=== PATIENT | female | born 1990 | race American Indian/Alaskan Native ===

== ENCOUNTER 2021-11-20 12:55 | Emergency (ER) | payer SELFPAY ==
[2021-11-20 14:26] LABS: Basophils % (Auto) 0.2 % (0.0-1.8); Eosinophils % (Auto) 0.5 % (0.0-4.3); Hematocrit 37.3 % (30.3-42.9); Hemoglobin 12.5 gm/dl (10.1-14.3); Lymphocytes # (Auto) 1.4 K/mm3 (1.2-5.4); Lymphocytes % (Auto) 32.2 % (13.4-35.0); Mean Corpuscular HGB Conc 34 % (30-34); Mean Corpuscular Volume 74 fl (79-97); Monocytes # (Auto) 0.4 K/mm3 (0.0-0.8); Monocytes % (Auto) 9.7 % (0.0-7.3); Platelet Count 188 K/mm3 (140-440); Red Blood Count 5.04 M/mm3 (3.65-5.03); Red Cell Distribution Width 15.9 % (13.2-15.2)
[2021-11-20 14:48] LABS: Alanine Aminotransferase 15 units/L (7-56); Albumin 4.3 g/dL (3.9-5); Blood Urea Nitrogen 7 mg/dL (7-17); Calcium 8.9 mg/dL (8.4-10.2); Hemolysis Index 4
[2021-11-20 14:55] LABS: BUN/Creatinine Ratio 12
[2021-11-20 15:56] LABS: Mucus,Urine FEW /HPF
[2021-11-20 15:58] LABS: Color,Urine Yellow (Yellow)
[2021-11-20 16:01] LABS: HCG Qualitative,Urine Negative (Negative)
[2021-11-20] MEDS ORDERED: methylPREDNISolone Sod Succinate 125 MG/2 ML INJ IM ONE (16:38)
[2021-11-20] MEDS ORDERED: ACETAMINOPHEN 500 MG TAB PO ONE (16:39)
--- NOTE | 2021-11-20 16:41 | Emergency Department Report ---
ED General Adult HPI - General Chief complaint: Abdominal Pain Stated complaint: LUPUS FLARE UP Time Seen by Provider: 11/20/21 16:37 Source: patient Mode of arrival: Ambulatory Limitations: No Limitations - History of Present Illness Initial comments: 31 yo come to ER with lupus flare. General soreness. Here usual. home Rx placquenil metop fe mvi no cp no sob -: Sudden, hour(s) Consistency: constant Improves with: none Worsens with: none Associated Symptoms: denies other symptoms Treatments Prior to Arrival: none - Related Data Previous Rx's Medication Instructions Recorded Last Taken Type Oseltamivir [Tamiflu] 75 mg PO BID #10 cap 04/13/15 Unknown Rx Amoxicillin [Trimox CAP] 500 mg PO Q8H #30 capsule 06/15/15 Unknown Rx Fluticasone [Flonase] 2 spray NS QDAY #1 bottle 06/15/15 Unknown Rx Loratadine (Nf) [Claritin] 10 mg PO DAILY #30 tablet 06/15/15 Unknown Rx Promethazine /Codeine 5 ml PO Q6H PRN #150 ml 06/15/15 Unknown Rx [Phenergan/Codeine 6.25-10 mg/5 ml] Sennosides/Docusate Sodium [Senna 1 each PO TID #30 tablet 12/11/15 Unknown Rx Laxative Tablet] Albuterol Mdi (or & Nicu Only) 2 puff IH QID PRN #1 inhalation 12/31/15 Unknown Rx [Proair] Azithromycin [Zithromax Z-FAVIOLA] 250 mg PO DAILY #6 tab 12/31/15 Unknown Rx Ibuprofen [Motrin 600 MG tab] 600 mg PO Q8H PRN #15 tablet 12/31/15 Unknown Rx Prednisone [predniSONE 10 mg 10 mg PO .TAPER #1 tab.ds.pk 12/31/15 Unknown Rx (6-Day Pack, 21 Tabs)] Acetaminophen [Tylenol Arthritis] 650 mg PO Q6HR PRN #30 tablet.er 01/08/17 Unknown Rx Ibuprofen [Motrin] 600 mg PO Q8H PRN #30 tablet 01/08/17 Unknown Rx Ondansetron [Zofran Odt] 4 mg PO Q8HR PRN #20 tab.rapdis 01/08/17 Unknown Rx Acetaminophen [Acetaminophen 8 650 mg PO Q8H PRN #25 tablet.er 11/20/21 Unknown Rx Hour] methylPREDNISolone [Medrol 4MG 4 mg PO FS #1 tab.ds.pk 11/20/21 Unknown Rx DOSEPAK (21 tabs)] Allergies Allergy/AdvReac Type Severity Reaction Status Date / Time apple Allergy Itching Verified 01/08/17 09:29 ED Review of Systems ROS: Stated complaint: LUPUS FLARE UP Other details as noted in HPI Comment: All other systems reviewed and negative ED Past Medical Hx - Past Medical History Previous Medical History?: Yes Hx Hypertension: Yes Hx Asthma: Yes Additional medical history: constipation, bronchitis, rheumatoid arthritis,lupus - Surgical History Past Surgical History?: Yes Additional Surgical History: lumpectomy - Family History Family history: no significant - Social History Smoking Status: Never Smoker Substance Use Type: None - Medications Home Medications: Home Medications Medication Instructions Recorded Confirmed Last Taken Type Oseltamivir [Tamiflu] 75 mg PO BID #10 cap 04/13/15 Unknown Rx Amoxicillin [Trimox CAP] 500 mg PO Q8H #30 capsule 06/15/15 Unknown Rx Fluticasone [Flonase] 2 spray NS QDAY #1 bottle 06/15/15 Unknown Rx Loratadine (Nf) [Claritin] 10 mg PO DAILY #30 tablet 06/15/15 Unknown Rx Promethazine /Codeine 5 ml PO Q6H PRN #150 ml 06/15/15 Unknown Rx [Phenergan/Codeine 6.25-10 mg/5 ml] Sennosides/Docusate Sodium [Senna 1 each PO TID #30 tablet 12/11/15 Unknown Rx Laxative Tablet] Albuterol Mdi (or & Nicu Only) 2 puff IH QID PRN #1 inhalation 12/31/15 Unknown Rx [Proair] Azithromycin [Zithromax Z-FAVIOLA] 250 mg PO DAILY #6 tab 12/31/15 Unknown Rx Ibuprofen [Motrin 600 MG tab] 600 mg PO Q8H PRN #15 tablet 12/31/15 Unknown Rx Prednisone [predniSONE 10 mg 10 mg PO .TAPER #1 tab.ds.pk 12/31/15 Unknown Rx (6-Day Pack, 21 Tabs)] Acetaminophen [Tylenol Arthritis] 650 mg PO Q6HR PRN #30 tablet.er 01/08/17 Unknown Rx Ibuprofen [Motrin] 600 mg PO Q8H PRN #30 tablet 01/08/17 Unknown Rx Ondansetron [Zofran Odt] 4 mg PO Q8HR PRN #20 tab.rapdis 01/08/17 Unknown Rx Acetaminophen [Acetaminophen 8 650 mg PO Q8H PRN #25 tablet.er 11/20/21 Unknown Rx Hour] methylPREDNISolone [Medrol 4MG 4 mg PO FS #1 tab.ds.pk 11/20/21 Unknown Rx DOSEPAK (21 tabs)] ED Physical Exam - General Limitations: No Limitations General appearance: alert, in no apparent distress - Head Head exam: Present: atraumatic, normocephalic - Eye Eye exam: Present: normal appearance - ENT ENT exam: Present: mucous membranes moist - Neck Neck exam: Present: normal inspection - Respiratory Respiratory exam: Present: normal lung sounds bilaterally. Absent: respiratory distress - Cardiovascular Cardiovascular Exam: Present: regular rate, normal rhythm. Absent: systolic murmur, diastolic murmur, rubs, gallop - GI/Abdominal GI/Abdominal exam: Present: soft, normal bowel sounds - Extremities Exam Extremities exam: Present: normal inspection - Back Exam Back exam: Present: normal inspection - Neurological Exam Neurological exam: Present: alert, oriented X3 - Psychiatric Psychiatric exam: Present: normal affect, normal mood - Skin Skin exam: Present: warm, dry, intact, normal color. Absent: rash ED Course Vital Signs 11/20/21 13:23 Temperature 98.4 F Pulse Rate 80 Respiratory 18 Rate Blood Pressure 146/107 [Left] O2 Sat by Pulse 99 Oximetry ED Medical Decision Making - Lab Data Result diagrams: 11/20/21 13:32 11/20/21 13:32 - Medical Decision Making Labs 11/20/21 11/20/21 11/20/21 13:32 13:32 15:35 WBC 4.4 L RBC 5.04 H Hgb 12.5 Hct 37.3 MCV 74 L MCH 25 L MCHC 34 RDW 15.9 H Plt Count 188 Lymph % (Auto) 32.2 [place] % (Auto) 9.7 H Eos % (Auto) 0.5 Baso % (Auto) 0.2 Lymph # (Auto) 1.4 [place] # (Auto) 0.4 Eos # (Auto) 0.0 Baso # (Auto) 0.0 Seg Neutrophils % 57.4 Seg Neutrophils # 2.5 Sodium 137 Potassium 4.0 Chloride 103.8 Carbon Dioxide 25 Anion Gap 12 BUN 7 Creatinine 0.6 Estimated GFR > 60 BUN/Creatinine Ratio 12 Glucose 86 Calcium 8.9 Total Bilirubin 0.40 AST 21 ALT 15 Alkaline Phosphatase 85 Total Protein 8.0 Albumin 4.3 Albumin/Globulin Ratio 1.2 Urine Color Yellow Urine Turbidity Slightly cloudy Specific [place] (Man) 1.010 Ur Protein (Man) 1+ Ur Ketones (Man) Negative Ur Nitrite (Man) Negative Urine Bilirubin (Man) Negative Urine Ictotest Not Reportable Leukocyte Esterase (Man) Negative Urine WBC (Auto) 1.0 Urine RBC (Auto) 2.0 U Epithel Cells (Auto) 15.0 H Urine RBC (Manual) Negative Urine Mucus Few Urine HCG, Qual Negative Vital Signs 11/20/21 13:23 Temperature 98.4 F Pulse Rate 80 Respiratory 18 Rate Blood Pressure 146/107 [Left] O2 Sat by Pulse 99 Oximetry im methylpred in ER vss abc intact hx htn on metop reports taking it no cp no sob ambulatory taking p nad on exam dc home with dc plan of care including diet, meds, activity and follow up - Differential Diagnosis sle Critical care attestation.: If time is entered above; I have spent that time in minutes in the direct care of this critically ill patient, excluding procedure time. ED Disposition Clinical Impression: Lupus, Hx of secondary hypertension Disposition: 01 HOME / SELF CARE / HOMELESS Is pt being admited?: No Does the pt Need Aspirin: No Condition: Stable Instructions: Abdominal Pain (ED) Additional Instructions: med as ordered today follow up with your primary MD [place] referral for local pcp below continue home meds Prescriptions: Acetaminophen [Acetaminophen 8 Hour] 650 mg PO Q8H PRN #25 tablet.er PRN Reason: Pain , Severe (7-10) methylPREDNISolone [Medrol 4MG DOSEPAK (21 tabs)] 4 mg PO FS #1 tab.ds.pk Referrals: KEVIN ZUNIGA MD [Staff Physician] - 3-5 Days Forms: Work/School Release Form(ED) Time of Disposition: 16:38
[2021-11-20 17:15] VITALS: BP 145/86
== END 2021-11-20 17:26 | disposition home or self-care (01) ==
LOC: ED 12:55
DX: D68.62 Lupus anticoagulant syndrome (principal); I10 Essential (primary) hypertension; J45.909 Unspecified asthma, uncomplicated; Z79.899 Other long term (current) drug therapy; Z91.02 Food additives allergy status
CPT/HCPCS: 36415; 80053; 81001; 81025; 85025; 96372; 99283; J2930